=== PATIENT | female | born 1930 | race Caucasian/White ===

== ENCOUNTER 2020-06-26 10:27 | Day surgery (SDC) | payer MEDICARE, BC ==
[2020-06-26] VITALS (13 sets, daily range): BP systolic 113–157; BP diastolic 50–83; PULSE 54–82; TEMP 97.7
[~2020-06-26] VITALS: Ht 157.5 cm; Wt 67.2 kg
[2020-06-26 11:17] LABS: HEMOGLOBIN 10.5 g/dl (12.5-16.0); MEAN CELL VOLUME 96 fl (80.0-100.0); MEAN CORPUSCULAR HEMOGLOBIN 31 pg (27.0-31.0); MEAN CORPUSCULAR HGB CONC 33 g/dl (33.0-37.0); MEAN PLATELET VOLUME 10.7 fl (7.4-10.4); PLATELET COUNT 327 K/mm3 (130-400); RED BLOOD COUNT 3.35 M/mm3 (4.10-5.30); REDCELL DISTRIBUTION WIDTH-CV 12.4 % (11.5-14.5)
[2020-06-26 11:21] LABS: HEMATOCRIT 32.3 % (37.0-47.0)
[2020-06-26 11:29] LABS: CALCIUM 10.6 mg/dL (8.4-10.2); CREATININE, serum 1.83 (0.52-1.25)
[2020-06-26] MEDS ORDERED: TOUJEO300 U/ML SQ (11:46)
[2020-06-26] MEDS ORDERED: HCTZ12.5TAB PO (11:46)
[2020-06-26] MEDS ORDERED: SYNTHROID0.05 MG/TA PO (11:47)
[2020-06-26] MEDS ORDERED: ZOLOFT 50MG50 MG PO (11:48)
[2020-06-26] MEDS ORDERED: PRIL40 PO (11:48)
[2020-06-26] MEDS ORDERED: PRAVACHOL80 MG PO (11:48)
[2020-06-26] MEDS ORDERED: VITAMIN D31000 I1 PO (11:49)
[2020-06-26] MEDS ORDERED: CALCIUM 600MG+D1 TAB PO (11:49)
[2020-06-26] MEDS ORDERED: KLONOPIN2 MG PO (11:51)
[2020-06-26] MEDS ORDERED: DAILY MULTIPLE1 T18 PO (11:51)
[2020-06-26] MEDS ORDERED: ASPIRIN 81M81 MG/TA2 PO (11:51)
[2020-06-26] MEDS ORDERED: PROLIA60 MG/ML SQ (11:52)
[2020-06-26 12:01] LABS: PROTHROMBIN TIME 11.2 SECONDS (9.7-12.8)
--- NOTE | 2020-06-26 14:40 | NUR ---
Pt to procedure at this time.
--- NOTE | 2020-06-26 15:07 | NUR ---
SEE DAVID FOR ALL MEDICATION ADMINISTRATION TIMES AND INTRA AND POST SEDATION ASSESSMENT
--- NOTE | 2020-06-26 15:34 | NUR ---
Report from Rios Vazquez.Will await pts arrival.
--- NOTE | 2020-06-26 19:35 | NUR ---
Discharge instructions given to pt.Pt verbalizes understanding.INt removed,catheter tip intact.Pt escorted out via wheelchair by this nurse.
== END 2020-06-26 19:35 | disposition home or self-care (01) ==
LOC: COL.CAR 10:27
PROVIDERS: Internal Medicine Cardiovascular Disease
DX: I25.10 Atherosclerotic heart disease of native coronary artery without angina pectoris (principal); I15.0 Renovascular hypertension; E78.5 Hyperlipidemia, unspecified; E11.9 Type 2 diabetes mellitus without complications; E03.9 Hypothyroidism, unspecified; Z90.5 Acquired absence of kidney; Z85.528 Personal history of other malignant neoplasm of kidney; Z79.82 Long term (current) use of aspirin; Z79.899 Other long term (current) drug therapy; I08.3 Combined rheumatic disorders of mitral, aortic and tricuspid valves
CPT/HCPCS: J1644; J2250; J2704